=== PATIENT | female | born 1975 | race Two or more races ===

== ENCOUNTER 2019-02-16 14:00 | Inpatient (IN) | payer OTHER ==
[2019-03-10 15:01] VITALS: BMI 26.9
[2019-03-16] MEDS ORDERED: BUPIVACAINE HCL/PF 0.25% (2.5MG/ML) 10 ML VIAL ONE ×2 (13:54→15:39)
[2019-03-16] MEDS ORDERED: VASOPRESSIN 20 UNITS/ML VIAL IV ONE (13:55)
[2019-03-16] MEDS ORDERED: MIDAZOLAM HCL 2 MG/2 ML SINGLE DOSE VIAL ONE (15:05)
[2019-03-16] MEDS ORDERED: fentaNYL CITRATE 250 MCG/5 ML VIAL ONE (15:05)
[2019-03-16] MEDS ORDERED: ROCURONIUM BROMIDE 50 MG/5 ML SYRINGE ONE ×3 (15:05→16:55)
[2019-03-16] MEDS ORDERED: PROPOFOL 20 ML ONE (15:06)
--- NOTE | 2019-03-16 15:32 | HP ---
History & Physical Update - History History: No Change - Physical Physical: No Change - Assessment Assessment: No Change - Plan Plan: No Change (H&P unchanged Consent signed and witnessed Patient agrees and understands that if difficulties encountered with Laparascopy, Exploratory laparatomy is a possibility)
--- NOTE | 2019-03-16 15:32 | OP ---
Operative Note - Note: Operative Date: 03/16/19 Pre-Operative Diagnosis: 44yo P3 with large fibroid uterus, pelvic pain Operation: Attempted Laparoscopic hysterectomy, Open Total Hysterectomy, bilateral salpingectomy Findings: 16wk multifibroid uterus Left lateral fibroid, blocking Left uterine artery Post-Operative Diagnosis: Same as Pre-op Surgeon: Jaida Zhang Audio Visual Manager: Parviz Coe Anesthesiologist/BABBITTER: Flako Moses Anesthesia: General Specimens Removed: Uterus with cervix. Bilateral fallopian tubes Estimated Blood Loss (mls): 200 Drains, Volume Out (mls): 100 Fluid Volume Replaced (mls): 2,000 Operative Report Dictated: Yes
[2019-03-16] MEDS ORDERED: ceFAZolin SODIUM 1 GM VIAL IVPB ONE (15:50)
[2019-03-16] MEDS ORDERED: EPHEDRINE SULFATE/0.9% NACL/PF 50 MG/10 ML SYRINGE NR ONE (17:48)
[2019-03-16] MEDS ORDERED: NEOSTIGMINE METHYLSULFATE 0.5 MG/ML - 10 ML MDV ONE ×2 (18:17→18:24)
[2019-03-16] MEDS ORDERED: BUPIVACAINE HCL/PF 0.5% (5 MG/ML) 30 ML VIAL IJ ONE ×2 (18:20)
[2019-03-16] MEDS ORDERED: GLYCOPYRROLATE 0.2 MG/1 ML VIAL ONE (18:24)
[2019-03-16] MEDS ORDERED: oxyCODONE HCL 5 MG TABLET PO PRN (18:54)
[2019-03-16] MEDS ORDERED: ONDANSETRON 4 MG/2 ML VIAL IVPUSH PRN (18:54)
[2019-03-16] MEDS ORDERED: HYDROmorphone *PCA* 10MG/50ML DISP.SYRIN ONE (19:05)
[2019-03-16] MEDS: ELECTROLYTE-148 SOLN 1,000 ML IV SCH (21:00)
[2019-03-16] MEDS ORDERED: HYDROmorphone *PCA* 10MG/50ML DISP.SYRIN PCA SCH (21:15)
--- NOTE | 2019-03-17 00:01 | OP ---
DATE OF OPERATION: 03/16/2019 PREOPERATIVE DIAGNOSIS: A 44-year-old para 3 with large fibroid uterus and pelvic pain. OPERATION: Attempted laparoscopic hysterectomy, open total hysterectomy and bilateral salpingectomy. FINDINGS: 16 week uterus, left lateral fibroid blocking left uterine artery access. POSTOPERATIVE DIAGNOSIS: A 44-year-old para 3 with large fibroid uterus and pelvic pain. SURGEON: Adan Zhang MD. ANESTHESIOLOGIST: Parviz Coe MD. ANESTHESIOLOGIST: Flako Moses MD. ANESTHESIA: General. SPECIMENS REMOVED: Uterus with cervix and bilateral fallopian tubes. DESCRIPTION OF OPERATIVE PROCEDURE: After insuring informed consent, patient was prepped and draped in sterile fashion, placed in dorsal lithotomy position. The cervical manipulator was placed sterilely. Hunt catheter was placed sterilely. The umbilical 5-mm incision was made with the scalpel. The abdomen was insufflated with CO2 gas. Optiview 5-mm trocar was placed under direct visualization. Subsequently, the 2 bilateral lower left and right lower quadrant trocars were placed under direct visualization as well. Excellent hemostasis throughout. The procedure was started by using LigaSure on the left round ligament and attempt to dissect left uteroovarian ligament since very large fibroid was found on that side. Bleeding was encountered upon dissection of left uteroovarian ligament and it was established that it would be very difficult to visualize the uterine artery on that side, so decision was made to proceed by creating a Pfannenstiel incision with the scalpel, subsequently incising fascia with Bovie cautery, dissecting fascia bilaterally after dissecting it off the rectus abdominis muscle. The rectus abdominis muscle was split in the midline. Peritoneum was identified, tented, and incised with Metzenbaum scissors. Peritoneal incision was dissected superiorly and inferiorly with good visualization of underlying organs. Patient was placed in Trendelenburg position and all bowel was retracted from the operative field. Uterus was exteriorized and bleeding was noted coming from the left adnexa, which subsequently the round ligament was dissected. Uterine artery on left side was skeletonized and clamped with Yunier clamp and subsequently suture ligated. Subsequently the downward bite was created with Yunier clamp and the uterine artery was further dissected away. Subsequently the round ligament was dissected on the right, bladder flap was created further, and right uterine artery was Yunier clamped and trisected in the similar fashion. The subsequent cardinal ligaments were clamped with Yunier clamps bilaterally, dissected off the cervix in several bites and subsequently the uterus was removed with cervix removed as well fully intact and handed for pathology. The vaginal cuff was repaired with 0 Vicryl. The corners of vaginal cuff were ligated with Yunier stitch with 0 Vicryl, and at the midline with 2 [id number]. Peritoneum was oversewn over the vaginal cuff. Excellent hemostasis was achieved. Abdomen was copiously irrigated. Left adnexa was found to be oozing and was cauterized with Bovie cautery and then wrapped in the Surgicel to accomplish optimal hemostasis. Excellent hemostasis was observed throughout. Bilateral tubes were resected with LigaSure. Bilateral ovaries were found to be normal in color and hemostatic. Abdomen was again copiously irrigated and excellent hemostasis was noted. Instrument and sponge count was correct. Subsequently the peritoneum was repaired with 0 Vicryl. Muscle was reapproximated with 0 Vicryl. The fascia was closed with 0 Vicryl. Subcutaneous tissue was reapproximated with 0 Vicryl as well, and skin was closed with 4-0 V-Loc Monocryl. Sponge and instrument count was again correct. Estimated blood loss was 200 mL. Patient received 2000 mL of IV fluids and put out 100 mL of urine, clear urine. She was brought extubated to the recovery room in stable condition. ADAN ZHANG M.D. [id number]
[2019-03-17] MEDS: CEFAZOLIN 2 GM/D5W 2 GM/50 ML ML IVPB SCH ×2 (00:35→08:37)
[2019-03-17] MEDS: ELECTROLYTE-148 SOLN 1,000 ML IV SCH ×2 (06:15→19:37)
--- NOTE | 2019-03-17 08:56 | PN ---
Progress Note, Physician Chief Complaint: 44yo P3 POD # 3 s/p SHWETHA/BL salpingectomy no acute complains, pain controlled with DIGITAL PRE PRESS OPERATOR no n/d - Current Medication List Current Medications: Active Medications Enoxaparin Sodium (Lovenox -) 40 mg SQ DAILY [facility] Hydromorphone HCl (Hydromorphone 10 Mg/50 Ml-Ns) 6 mg DIGITAL PRE PRESS OPERATOR DIGITAL PRE PRESS OPERATOR [facility]; Protocol Stop: 03/23/19 21:13 Parenteral Electrolytes (Plasma-Lyte 148 -) 1,000 mls @ 125 mls/hr IV ASDIR CARROLL Last Admin: 03/17/19 06:15 Dose: 125 mls/hr Ibuprofen (Motrin -) 600 mg PO Q6H PRN PRN Reason: FEVER Ibuprofen (Caldolor Injection -) 800 mg IVPB Q6H PRN PRN Reason: Fever - If PO not effective. Ondansetron HCl (Zofran Injection) 4 mg IVPUSH Q6H PRN PRN Reason: NAUSEA - Objective Vital Signs: Vital Signs Temperature 98.3 F 03/17/19 07:36 Pulse Rate 86 03/17/19 07:36 Respiratory Rate 14 03/17/19 07:36 Blood Pressure 127/77 03/17/19 07:36 O2 Sat by Pulse Oximetry (%) 100 03/17/19 02:00 Constitutional: Yes: Well Nourished, No Distress, Calm Eyes: Yes: WNL HENT: Yes: WNL Neck: Yes: WNL, Supple, Trachea Midline Cardiovascular: Yes: WNL, Regular Rate and Rhythm Respiratory: Yes: WNL, Regular, CTA Bilaterally Gastrointestinal: Yes: WNL, Normal Bowel Sounds, Soft Genitourinary: Yes: WNL Breast(s): Yes: WNL Musculoskeletal: Yes: WNL Extremities: Yes: WNL Edema: No Integumentary: Yes: WNL Wound/Incision: Yes: Clean/Dry Neurological: Yes: WNL, Alert, Oriented ...Motor Strength: WNL Psychiatric: Yes: WNL, Alert, Oriented Assessment/Plan 44yo P3 s/p SHWETHA/Bl salpingectomy/attempted LSC POD # 3 Doing well VSS, afebrile d/c DIGITAL PRE PRESS OPERATOR and purcell @ noon Encourage ambulation and DIGITAL PRE PRESS OPERATOR
[2019-03-17] MEDS: ENOXAPARIN NA (PORCINE) 40 MG/0.4 ML DISP.SYRIN SQ SCH (09:47)
--- NOTE | 2019-03-17 11:09 | PN ---
Progress Note (short form) - Note Progress Note: POD1 s/p vag hys under GA. Pt doing well today; she had an epsisode of bronchospasm during induction, which resolved quickly and without complication. She is feeling well today, says pain is well controlled on OIL FIRE SPECIALIST. No complications/issues noted, will continue OIL FIRE SPECIALIST
[2019-03-17] MEDS: IBUPROFEN 800 MG/8 ML IJ IVPB PRN ×2 (14:14→20:39)
[2019-03-17] MEDS: IBUPROFEN 600 MG TABLET (FP) PO PRN (23:49)
[2019-03-18] MEDS: IBUPROFEN 800 MG/8 ML IJ IVPB PRN (05:40)
[2019-03-18 09:01] LABS: HEMATOCRIT 35.1 % (32.4-45.2); HEMOGLOBIN 11.7 GM/dL (10.7-15.3); MCH 30.4 pg (25.7-33.7); MCHC 33.2 g/dl (32.0-36.0); MEAN CELL VOLUME 91.7 fl (80-96); MEAN PLT VOLUME 8.9 fl (7.5-11.1); PLATELET COUNT 224 K/MM3 (134-434); RBC 3.83 M/mm3 (3.60-5.2); RDW 12.9 % (11.6-15.6); WHITE BLOOD COUNT 8.1 K/mm3 (4.0-10.0)
--- NOTE | 2019-03-18 09:25 | PN ---
Progress Note, Physician Chief Complaint: 44yo P3 POD # 2s/p SHWETHA/BL salpingectomy no acute complains, pain controlled with WRAPPER CASER no n/d - Current Medication List Current Medications: Active Medications Enoxaparin Sodium (Lovenox -) 40 mg SQ DAILY [facility] Last Admin: 03/17/19 09:47 Dose: 40 mg Parenteral Electrolytes (Plasma-Lyte 148 -) 1,000 mls @ 125 mls/hr IV ASDIR CARROLL Last Admin: 03/17/19 19:37 Dose: Not Given Ibuprofen (Motrin -) 600 mg PO Q6H PRN PRN Reason: FEVER Last Admin: 03/17/19 23:49 Dose: 600 mg Ibuprofen (Caldolor Injection -) 800 mg IVPB Q6H PRN PRN Reason: Fever - If PO not effective. Last Admin: 03/18/19 05:40 Dose: 800 mg Ondansetron HCl (Zofran Injection) 4 mg IVPUSH Q6H PRN PRN Reason: NAUSEA - Objective Vital Signs: Vital Signs Temperature 98.3 F 03/18/19 05:23 Pulse Rate 74 03/18/19 05:23 Respiratory Rate 20 03/18/19 05:23 Blood Pressure 105/67 03/18/19 05:23 O2 Sat by Pulse Oximetry (%) 99 03/17/19 21:00 Labs: CBC, BMP 03/18/19 08:22 Assessment/Plan 44yo P3 s/p SHWETHA/Bl salpingectomy/attempted LSC POD # 2 Doing well VSS, afebrile d/c WRAPPER CASER and purcell @ noon Encourage ambulation and WRAPPER CASER
[2019-03-18] MEDS: ENOXAPARIN NA (PORCINE) 40 MG/0.4 ML DISP.SYRIN SQ SCH (09:49)
[2019-03-18] MEDS ORDERED: BISACODYL 10 MG SUPP.RECT RC ONE (10:00)
[2019-03-18] MEDS: IBUPROFEN 600 MG TABLET (FP) PO PRN ×3 (10:13→21:29)
--- NOTE | 2019-03-18 13:48 | PN ---
Progress Note (short form) - Note Progress Note: 44F POD2 s/p open hysterectomy under GA-ETT with PSYCHIATRIC TECHNICIAN ASSISTANT for post op pain management. Pt doing very well. States that pain is well controlled off of PSYCHIATRIC TECHNICIAN ASSISTANT, has no anesthetic related complaints. AVSS. PSYCHIATRIC TECHNICIAN ASSISTANT d/c'd, continue current regimen.
[2019-03-18] MEDS: ELECTROLYTE-148 SOLN 1,000 ML IV SCH (20:09)
[2019-03-19] MEDS: IBUPROFEN 600 MG TABLET (FP) PO PRN (08:31)
[2019-03-19] MEDS: ENOXAPARIN NA (PORCINE) 40 MG/0.4 ML DISP.SYRIN SQ SCH (10:36)
[2019-03-19 11:55] VITALS: BP 96/63; PULSE 85; TEMP 98.2
--- NOTE | 2019-03-19 12:55 | DS ---
Physical Examination Vital Signs: Vital Signs Temperature 98.2 F 03/19/19 10:00 Pulse Rate 85 03/19/19 10:00 Respiratory Rate 19 03/19/19 10:00 Blood Pressure 96/63 03/19/19 10:00 O2 Sat by Pulse Oximetry (%) 98 03/19/19 09:00 Constitutional: Yes: Well Nourished, No Distress, Calm Eyes: Yes: WNL HENT: Yes: WNL, Atraumatic, Normocephalic Neck: Yes: WNL, Supple, Trachea Midline Cardiovascular: Yes: WNL, Regular Rate and Rhythm Respiratory: Yes: WNL, Regular, CTA Bilaterally Gastrointestinal: Yes: WNL, Normal Bowel Sounds, Soft Renal/: Yes: WNL Breast(s): Yes: WNL Musculoskeletal: Yes: WNL Extremities: Yes: WNL Edema: No Integumentary: Yes: WNL Wound/Incision: Yes: Clean/Dry, Well Approximated Neurological: Yes: WNL, Alert, Oriented ...Motor Strength: WNL Psychiatric: Yes: WNL, Alert Labs: CBC, BMP 03/18/19 08:22 Discharge Summary Problems reviewed: Yes Reason For Visit: FIBROID UTERUS Procedures: Principal: Total Hysterectomy, Bilateral salpingectomy Hospital Course: Unremarkable Condition: Good - Instructions Diet, Activity, Other Instructions: Dr. Zhang Metrology Engineer discharge instructions Physical activity Resume your normal everyday activity as tolerated no heavy lifting or exercise until seen by your surgeon. You may walk unlimited amna of and climb stairs. You may resume driving the car when you feel safe and comfortable behind the wheel. No sexual activity as instructed by Dr. Zhang Wound care If you have a bandage, leave it on, and keep dry for 48-72 hours. After that time discard the outer bandage. If they are tapes on the skin under the out of bandage leave them in place. They will peel off in the next 7 to 10 days. Do Not Peel them off. You may shower the day after surgery. If there are tapes present on the skin, you may shower over them. Diet There are no dietary restrictions. Eat healthy, high-fiber foods. Drink 6 to 8 glasses of liquid each day. This will assist in keeping your bowels are regular. Pain management You may take Tylenol or acetaminophen or Ibuprofen (for example, Motrin, Advil etc.) from my pain prescription medication is ordered should be taken as prescribed for moderate to severe pain. Call Dr. Zhang for any of the following: Severe pain not relieved by medication Fever of 101 or higher Excessive bleeding or drainage on dressing Inability to urinate Call the office at [phone] for an appointment in seven days. Referrals: Jaida Zhang MD [Staff Physician] - Disposition: HOME - Home Medications Comprehensive Discharge Medication List: Ambulatory Orders NK [No Known Home Medication] 03/10/19
--- NOTE | 2019-03-22 10:46 | PATH ---
Surgical Pathology Report Patient Name: NATALIIA GARCIA [facility]. Rec. #: [id number] /Age/Gender: 1975 (Age: 44) / F Account: [id number] Location: [address] [place] [address] Taken: 03/16/2019 Received: 03/17/2019 Reported: 03/22/2019 Physicians: Jaida Zhang M.D. Specimen(s) Received UTERUS, CERVIX, RIGHT AND LEFT FALLOPIAN TUBES Clinical History Uterine fibroids, cervical dysplasia Final Diagnosis UTERUS, CERVIX, RIGHT AND LEFT FALLOPIAN TUBES, TOTAL HYSTERECTOMY AND BILATERAL SALPINGECTOMY: 293 G UTERUS. LEIOMYOMA(TA), SUBSEROSAL, SUBMUCOSAL, AND INTRAMURAL. SECRETORY ENDOMETRIUM. CERVIX WITH PARAKERATOSIS AND SQUAMOUS METAPLASIA. NO DYSPLASIA IDENTIFIED. LEFT FALLOPIAN TUBE WITH PARATUBAL CYST AND ENDOSALPINGOSIS. UNREMARKABLE RIGHT FALLOPIAN TUBE. Electronically Signed Sangita Pires M.D. Gross Description Received in formalin labeled "right and left fallopian tube, uterus and cervix," is a 293 gram hysterectomy specimen including a uterus, attached cervix and an attached left fallopian tube. The right fallopian tube is separately received within the same container. The specimen measures 10 cm from anterior to posterior, 10 cm from superior to inferior and 7 cm from left to right. The serosa is das-pink and smooth with focal bulging subserosal nodules. The attached cervix measures 3 cm in length and averages 2 cm in diameter. The ectocervix is das, smooth and glistening. The endocervix is unremarkable. The endometrial cavity measures 4.5 cm in length and averages 2.5 cm from cornu to cornu. There is a 1.8 cm in greatest dimension submucosal nodule present. The endometrium is red and averages 0.1 cm in thickness. The myometrium displays abundant intramural nodules, measuring up to 5.2 cm in greatest dimension. The cut surface of the submucosal, subserosal and intramural nodules is das and rubbery with whorled architecture. No areas of hemorrhage or necrosis are identified. The remaining myometrium is das-pink and measures up to 5.5 cm in thickness. The attached left fimbriated fallopian tube measures 5.5 cm in length. The outer surface is short purple and smooth. Sectioning reveals an unremarkable lumen. The separately received right fimbriated fallopian tube measures 2.5 cm in length. The outer surface is yancey purple and smooth. Sectioning reveals an unremarkable lumen. Truck Jumper sections are submitted in 16 cassettes as follows: 1-anterior cervix; 2-posterior cervix; 3-6-ybbdualz endomyometrium; 4-5-stmtpirec endomyometrium; 7-submucosal nodule; 8-subserosal nodules; 2-89-qwgixnrfrx nodules; 46-12-pwlckwd intramural nodule; 13-left fallopian tube fimbria; 14-cross sections of left fallopian tube; 15-right fallopian tube fimbria; 16-sections of right fallopian tube. DL03/17/2019 saudi03/17/2019
== END 2019-03-19 14:31 | disposition home or self-care (01) | DRG 519 ==
LOC: JSAMEDAYSX 03-16 12:59 → J6S 03-16 21:38
PROVIDERS: ADMIT Obstetrics & Gynecology; ATTEND Obstetrics & Gynecology
PROC: 0UT90ZZ Resection of Uterus, Open Approach (ICD-10-PCS; principal; 2019-03-16 15:00)
PROC: 0UT70ZZ Resection of Bilateral Fallopian Tubes, Open Approach (ICD-10-PCS; 2019-03-16 15:00)
DX: D25.9 Leiomyoma of uterus, unspecified (principal); Z53.31 Laparoscopic surgical procedure converted to open procedure
CPT/HCPCS: 36415; 74018-TC-FY; 84703; 85027; 86850; 86900; 86901; 88307-TC; 94010; 94760